=== PATIENT | female | born 1970 | race Caucasian/White ===

== ENCOUNTER 2017-04-08 14:12 | Emergency (ER) | payer SELFPAY ==
[~2017-04-08 14:12] MED LIST: KETO10 PO; PERC5TAB12 PO; TAB-TAB PO; TAMS0.4C67 PO; ZOFR4TAB3 PO; [UNRECOGNIZED DRUG - OTHER]
[2017-04-08 14:15] VITALS: BP 143/98; PULSE 94; RESP 15; TEMP 98.6; O2SAT 98
--- NOTE | 2017-04-08 14:32 | PD ---
Physical Exam Date Seen by Provider: Apr 08, 2017 Time Seen by Provider: 14:29 Data Data Last Documented VS Vital Signs Date Time Temp Pulse Resp B/P Pulse Ox O2 Delivery O2 Flow Rate FiO2 04/08/17 14:15 98.6 94 15 143/98 98 MDM Supervised Visit with LETA: No Narrative Course 46 YO F with hematuria, back pain, flank pain, groin pain x 3 weeks. + chills, nausea States bloody urine cleared up, but started again today which caused her to seek treatment. No hx blood thinners or ASA use. Vitals reviewed. Patient seen in triage, awaiting bed placement. Norma Gil Apr 08, 2017 14:32
[2017-04-08] MEDS ORDERED: SODIUM CHLOR 0.9% 1000 ML INJ 1,000 ML IV SCH (15:33)
[2017-04-08] MEDS ORDERED: KETOROLAC TROMETHAMINE 30 MG/ML (IVP) VIAL IVP ONE (15:45)
[2017-04-08] MEDS ORDERED: ONDANSETRON HCL 4 MG/2 ML VIAL IVP ONE (15:45)
--- NOTE | 2017-04-08 15:46 | PD ---
HPI Chief Complaint: Flank/Kidney Pain Time Seen by Provider: 15:43 Travel History International Travel<30 days: No Contact w/Intl Traveler<30days: No Traveled to known affect area: No History of Present Illness HPI 46-year-old female that presents to the ED for evaluation of left flank pain and abdominal pain. Per patient she's had hematuria for the past 3 weeks. Per patient the pain is coming and going and is not improving. Per patient she also has dysuria. Per patient [facility] and she had a urine that only show blood. She tried to go to a urologist but they wouldn't see her for unknown reason. Per patient she has menopausal her doctor before her doctor won't see her until 2 weeks from now. Patient states that she is concerned that she has something serious. She does have a history of kidney stones and states that he feels very similar. She states that she feels nauseous. She states that she has no fevers chills or sweats. No vaginal discharge. Per patient she had had a partial hysterectomy. She states that the blood continues and this is what concerned her. She denies taking any blood thinners. States that the pain is a 5 out of 10. No allergies to medication. No other medical issues. PFSH Past Medical History Cancer: No Diabetes: No Glaucoma: No Hepatitis: No Hiatal Hernia: Yes Hypertension: No Thyroid Disease: No ?: Not Tubal Ligation: Yes Past Surgical History Genitourinary Surgery: Yes ( CYST FROM GROIN AREA REMOVED ) Hysterectomy: Yes Oral Surgery: Yes (DENTAL IMPLANTS, RIGHT JAW "SHAVED DOWN") Other Surgery: Yes Social History Alcohol Use: Yes (RARELY) Tobacco Use: Yes (1PK/DAY) Substance Use: No Allergies-Medications (Allergen,Severity, Reaction): Coded Allergies: No Known Allergies (Unverified , 04/08/17) Reported Meds & Prescriptions Reported Meds & Active Scripts Active Zofran (Ondansetron HCl) 4 Mg Tab 4 Mg PO Q6HR PRN Cipro (Ciprofloxacin HCl) 500 Mg Tab 500 Mg PO BID 7 Days Flomax (Tamsulosin HCl) 0.4 Mg Cap 0.4 Mg PO HS Lortab (Hydrocodone-Acetaminophen) 5-325 Mg Tab 1 Tab PO Q6H PRN Review of Systems Except as stated in HPI: all other systems reviewed are Neg Physical Exam Narrative GENERAL: SKIN: Warm and dry. HEAD: Atraumatic. Normocephalic. EYES: Pupils equal and round. No scleral icterus. No injection or drainage. ENT: No nasal bleeding or discharge. Mucous membranes pink and moist. Tongue is midline. No uvula deviation. NECK: Trachea midline. No JVD. CARDIOVASCULAR: Regular rate and rhythm. No murmurs, S3, S4. RESPIRATORY: No accessory muscle use. Clear to auscultation. Breath sounds equal bilaterally. GASTROINTESTINAL: Abdomen soft, non-tender, nondistended. Hepatic and splenic margins not palpable. Patient has CVA tenderness on the left side. MUSCULOSKELETAL: Extremities without clubbing, cyanosis, or edema. No obvious deformities. Full range of motion of the upper and lower extremities bilaterally. 2+ pulses bilaterally. NEUROLOGICAL: Awake and alert. No obvious cranial nerve deficits. Motor grossly within normal limits. Five out of 5 muscle strength in the arms and legs. Normal speech. PSYCHIATRIC: Appropriate mood and affect; insight and judgment normal. Data Data Last Documented VS Vital Signs Date Time Temp Pulse Resp B/P Pulse Ox O2 Delivery O2 Flow Rate FiO2 04/08/17 15:37 16 04/08/17 14:15 98.6 94 143/98 98 Orders Urinalysis - C+S If Indicated (04/08/17 14:32) Complete Blood Count With Diff (04/08/17 15:31) Basic Metabolic Panel (Bmp) (04/08/17 15:31) Magnesium (Mg) (04/08/17 15:31) Ct Abd/Pel W/O Iv Contrast (04/08/17 15:31) Ondansetron Inj (Zofran Inj) (04/08/17 15:45) Sodium Chlor 0.9% 1000 Ml Inj (Ns 1000 M (04/08/17 15:33) Ketorolac Inj (Toradol Inj) (04/08/17 15:45) Urine Culture (04/08/17 15:00) Ciprofloxacin (Cipro) (04/08/17 17:15) Labs Laboratory Tests Test 04/08/17 04/08/17 15:00 15:50 Urine Color LIGHT-RED Urine Turbidity HAZY Urine pH 6.0 Urine Specific Mica 1.010 Urine Protein 30 mg/dL Urine Glucose (UA) NEG mg/dL Urine Ketones TRACE mg/dL Urine Occult Blood LARGE Urine Nitrite NEG Urine Bilirubin NEG Urine Urobilinogen LESS THAN 2.0 MG/DL Urine Leukocyte Esterase NEG Urine RBC /hpf Urine WBC 19 /hpf Urine Squamous Epithelial <1 /hpf Cells Urine Bacteria OCC /hpf Urine Mucus FEW /lpf Microscopic Urinalysis Comment CULTURE INDICATED White Blood Count 6.3 TH/MM3 Red Blood Count 4.40 MIL/MM3 Hemoglobin 14.7 GM/DL Hematocrit 42.0 % Mean Corpuscular Volume 95.5 FL Mean Corpuscular Hemoglobin 33.3 PG Mean Corpuscular Hemoglobin 34.9 % Concent Red Cell Distribution Width 12.6 % Platelet Count 186 TH/MM3 Mean Platelet Volume 11.1 FL Neutrophils (%) (Auto) 74.3 % Lymphocytes (%) (Auto) 18.7 % Monocytes (%) (Auto) 5.3 % Eosinophils (%) (Auto) 0.4 % Basophils (%) (Auto) 1.3 % Neutrophils # (Auto) 4.7 TH/MM3 Lymphocytes # (Auto) 1.2 TH/MM3 Monocytes # (Auto) 0.3 TH/MM3 Eosinophils # (Auto) 0.0 TH/MM3 Basophils # (Auto) 0.1 TH/MM3 CBC Comment DIFF FINAL Differential Comment Sodium Level 141 MEQ/L Potassium Level 3.7 MEQ/L Chloride Level 105 MEQ/L Carbon Dioxide Level 27.6 MEQ/L Anion Gap 8 MEQ/L Blood Urea Nitrogen 9 MG/DL Creatinine 0.75 MG/DL Estimat Glomerular Filtration 84 ML/MIN Rate Random Glucose 86 MG/DL Calcium Level 8.7 MG/DL Magnesium Level 2.3 MG/DL [facility] Medical Decision Making Medical Screen Exam Complete: Yes Emergency Medical Condition: Yes Medical Record Reviewed: Yes Interpretation(s) CBC & BMP Diagram 04/08/17 15:50 UA shows blood and signs of possible infection Last Impressions Abdomen/Pelvis CT 04/08/17 1531 Signed Impressions: Service Date/Time: Saturday, April 08, 2017 15:57 - CONCLUSION: 1. Curvilinear calcification in the right renal pelvis measuring around 6 x 3 mm with minimal right hydronephrosis . Multiple tiny nonobstructing left renal calculi. 2. Adrenal hyperplasia or adenomatous changes similar to 2015 comparison. Charlie Davila MD Differential Diagnosis Hematuria versus kidney stone versus pyelonephritis versus kidney failure Narrative Course 46-year-old female that presents to the ED for evaluation of hematuria and left flank pain. Patient was properly examined and was found to have signs and symptoms consistent with appears to be likely kidney stone. She does have a history of this in the past and actually has been here for similar. Labs and imaging were done. Patient was given IV fluids and pain medications. Labs and imaging showed what appears to be multiple kidney stones with a stone on the right kidney which is about 3 x 6 mm. Case was discussed in my attending who agrees with plan. He recommends follow-up outpatient. Patient was given mandatory referral as patient has no insurance. Patient was given prescription for Lortab, Zofran, Cipro and Flomax. Told to follow up with PCP. See ED for worsening symptoms. Diagnosis Primary Impression: Kidney stones Patient Instructions: General Instructions Additional Instructions: Take medications as prescribed. Follow-up with PCP. See ED for any worsening symptoms. Do not drink or drive while taking pain medication. Drink plenty of fluids. Med/Other Pt SpecificInfo: Prescription(s) given Scripts Ondansetron (Zofran)4 Mg Tab4 Mg PO Q6HR PRN (NAUSEA OR VOMITING) #14 TAB Ref 0 Prov:Simon Davila MD 04/08/17 Ciprofloxacin (Cipro)500 Mg Zir501 Mg PO BID 7 Days Ref 0 Prov:Simon Davila MD 04/08/17 Tamsulosin (Flomax)0.4 Mg Cap0.4 Mg PO HS #14 CAP Ref 0 Prov:Simon Davila MD 04/08/17 Hydrocodone-Acetaminophen (Lortab)5-325 Mg Tab1 Tab PO Q6H PRN (PAIN) #20 TAB Prov:Simon Dvaila MD 04/08/17 Disposition: 01 DISCHARGE HOME Condition: Stable [place] Apr 08, 2017 15:46
[2017-04-08 15:51] LABS: BACTERIA, URINE OCC /hpf; BLOOD, URINE LARGE (NEG); COMMENT (UR) CULTURE INDICATED; CULTURE IF INDICATED CULTURE INDICATED; GLUCOSE,URINE NEG (NEG); KETONE, URINE TRACE mg/dL (NEG); MUCUS URINE FEW /lpf (OCC); NITRITE,URINE NEG (NEG); SQUAMOUS EPITHELIAL CELL URINE <1 /hpf (0-5)
[2017-04-08 15:52] LABS: URINE COLOR LIGHT-RED (YELLW/STRAW)
[2017-04-08 16:28] LABS: AUTOMATED NEUTROPHIL # 4.7 TH/MM3 (1.8-7.7); BASOPHIL # 0.1 TH/MM3 (0-0.2); BASOPHIL % 1.3 % (0.0-2.0); EOSINOPHIL % 0.4 % (0.0-4.0); HEMO FLAGS DIFF FINAL; LYMPH % 18.7 % (9.0-44.0); LYMPHOCYTE # 1.2 TH/MM3 (1.0-4.8); MEAN CELL VOLUME 95.5 FL (80.0-100.0); MEAN CORPUSCULAR HEMOGLOBIN 33.3 PG (27.0-34.0); MEAN CORPUSCULAR HGB CONC 34.9 % (32.0-36.0); MONO % 5.3 % (0.0-8.0); NEUT % 74.3 % (16.0-70.0); PLATELET COUNT 186 TH/MM3 (150-450); RED CELL DISTRIBUTION WIDTH 12.6 % (11.6-17.2); WHITE BLOOD COUNT 6.3 TH/MM3 (4.0-11.0)
--- NOTE | 2017-04-08 16:30 | RADRPT ---
EXAM DATE/TIME: 04/08/2017 15:57 [facility] COMPARISON: No previous studies available for comparison. INDICATIONS : Left flank pain for three weeks. ORAL CONTRAST: No oral contrast ingested. RADIATION DOSE: 13.81 CTDIvol (mGy) MEDICAL HISTORY : Hernia, hiatal. Renal calculi. SURGICAL HISTORY : Tubal ligation. Hysterectomy. ENCOUNTER: Initial ACUITY: 3 weeks PAIN SCALE: 3/10 LOCATION: Left flank TECHNIQUE: Volumetric scanning of the abdomen and pelvis was performed. Using automated exposure control and ad justment of the mA and/or kV according to patient size, radiation dose was kept as low as reasonably achievable to obtain optimal diagnostic quality images. DICOM format image data is available electro nically for review and comparison. FINDINGS: There is a curvilinear calcification in the right renal pelvis in the UPJ approximately 6 mm in lengt h and 3 mm in diameter with minimal dilatation of the right renal collecting system. There are severa l tiny nonobstructing calculi mid pole left kidney ranging in size from 1-2 mm. Lung bases clear. No acute findings in the liver, spleen, adrenals or pancreas. Stable adrenal alignm ent compared with 2015. No free fluid. No bowel obstruction. No adenopathy. CONCLUSION: 1. Curvilinear calcification in the right renal pelvis measuring around 6 x 3 mm with minimal right h ydronephrosis . Multiple tiny nonobstructing left renal calculi. 2. Adrenal hyperplasia or adenomatous changes similar to 2015 comparison. Charlie Davila MD on April 08, 2017 at 16:20 Board Certified Radiologist. This report was verified electronically.
[2017-04-08 16:39] LABS: BICARBONATE 27.6 MEQ/L (21.0-32.0); MAGNESIUM 2.3 MG/DL (1.5-2.5); POTASSIUM 3.7 MEQ/L (3.5-5.1)
[2017-04-08] MEDS ORDERED: CIPR-9 PO (16:49)
[2017-04-08] MEDS ORDERED: ZOFR4TAB PO (16:49)
[2017-04-08] MEDS ORDERED: TAMS5CAP PO (16:49)
[2017-04-08] MEDS ORDERED: HYDR-3533 PO (16:49)
[2017-04-08] MEDS ORDERED: CIPROFLOXACIN 500 MG TAB PO ONE (17:15)
[2017-04-08 17:26] VITALS: BP 124/74
== END 2017-04-08 17:48 | disposition home or self-care (01) ==
LOC: NEPC 14:12
DX: N20.0 Calculus of kidney (principal); F17.290 Nicotine dependence, other tobacco product, uncomplicated
CPT/HCPCS: 74176; 80048; 81001; 83735; 85025; 87086; 96361; 96374; 96375; 99285; J1885; J2405; J7030